=== PATIENT | male | born 1945 | race Caucasian/White ===

== ENCOUNTER 2017-10-26 09:35 | Outpatient (RCR) | payer OTHER, SELFPAY ==
--- NOTE | 2017-10-26 09:30 | PTTR_ITS ---
DATE: October 26, 2017 SUBJECTIVE: Vincent states that he continues to note irritation with prolonged sitting on his right sided SI region. He continues to self manage with self trigger points and massage techniques as well as compliancy with his home stretching program and stabilization. He was away for vacation and did a lot of swimming which seemed to help. He is going to be away for the next week and is going to touch base with his PCP upon his return to check into possible TP injections. OBJECTIVE: Manual therapy: ([id number]).Soft tissue stretching to bilateral hamstring, ITB, piriformis, SKC, hook lying lumbar rotation. PA mobilization to the lumbar spine Gr III. Transverse mobilization followed. STM throughout the entire low back and pelvic brim. TPR to the glut med and max. CFM to the pelvic brim and paraspinals with focus on right side. STM was completed in prone position. Ended with cold pack to the low back and right SI region for 10 minutes post. At this time do agree with Vincent feel that further intervention might be needed for more prolonged symptomatic relief. Continued to get good relief via STM and stretches however not long standing results. Also recommended consult with Timo Castillo DPT for possible dry needling. Will plan to follow up as needed. He will continue with HEP. Direct treatment time: 30 minutes Total treatment time: 40 minutes
== END 2017-11-05 23:59 | disposition home or self-care (01) ==
LOC: PT 09:35
PROVIDERS: PCP Family Medicine; Referring Provider Family Medicine; Visit Provider Family Medicine
DX: M77.02 Medial epicondylitis, left elbow (principal); M54.41 Lumbago with sciatica, right side
CPT/HCPCS: 97140

== ENCOUNTER 2018-02-02 08:27 | Outpatient (CLI) | payer OTHER, SELFPAY ==
[2018-02-02 10:04] LABS: Anion Gap 6.7 mmol/L (3-11); BUN 14 mg/dL (7-18); CO2 32.3 mmol/L (21.0-32.0); CREATININE 0.83 mg/dL (0.70-1.30); Calcium 8.7 mg/dL (8.5-10.1); Chloride 102 mmol/L (98-107); Cholesterol 236 mg/dL (50-200); Glucose 109 mg/dL (70-100); HDL Cholesterol 53 mg/dL (40-60); LDL CHOLESTEROL 169 mg/dL (<100); Potassium 4.1 mmol/L (3.5-5.1); Sodium 141 mmol/L (136-145); Triglyceride 103 mg/dL (30-150)
== END 2018-02-02 08:47 ==
PROVIDERS: PCP Family Medicine; Visit Provider Family Medicine
DX: E78.5 Hyperlipidemia, unspecified (principal)
CPT/HCPCS: 36415; 80048; 80061; 83721

== ENCOUNTER 2018-02-15 01:59 | Outpatient (CLI) | payer OTHER, SELFPAY ==
[2018-02-16 08:52] LABS: PSA, Screening 2.9 ng/ml (0-6.5)
== END 2018-02-15 02:19 ==
PROVIDERS: PCP Family Medicine; Visit Provider Family Medicine
DX: Z12.5 Encounter for screening for malignant neoplasm of prostate (principal); Z80.42 Family history of malignant neoplasm of prostate
CPT/HCPCS: 36415; 84153

== ENCOUNTER 2019-02-13 00:15 | Outpatient (CLI) | payer OTHER, SELFPAY ==
[2019-02-13 09:08] LABS: Anion Gap 8.4 mmol/L (3-11); BUN 14 mg/dL (7-18); CO2 28.6 mmol/L (21.0-32.0); CREATININE 0.84 mg/dL (0.70-1.30); Calcium 8.5 mg/dL (8.5-10.1); Calculated LDL 165 mg/dL; Chloride 104 mmol/L (98-107); Cholesterol 230 mg/dL (<200); Glucose 105 mg/dL (74-106); HDL Cholesterol 50 mg/dL (40-60); Potassium 4.2 mmol/L (3.5-5.1); Sodium 141 mmol/L (136-145); Triglyceride 75 mg/dL (<150)
[2019-02-14 09:59] LABS: PSA, Screening 2.6 ng/mL (0.0-6.5)
== END 2019-02-13 00:35 ==
PROVIDERS: PCP Family Medicine; Visit Provider Family Medicine
DX: E78.5 Hyperlipidemia, unspecified (principal); Z12.5 Encounter for screening for malignant neoplasm of prostate
CPT/HCPCS: 36415; 80048; 80061; 84153

== ENCOUNTER 2020-02-21 02:32 | Outpatient (CLI) | payer OTHER, SELFPAY ==
[2020-02-21 12:23] LABS: HCT 47.8 % (40.0-50.0); HGB 16.2 g/dL (13.5-17.5); MCH 32.2 pg (27.0-33.0); MCHC 33.9 % (32.0-36.0); MPV 10.5 fL (8.0-11.0); Platelet Count 153 10^3/uL (130-400); RBC 5.03 10^6/uL (4.36-5.78); RDW 11.6 % (11.8-14.1); WBC 6.87 10^3/uL (4.4-10.8)
[2020-02-21 12:37] LABS: ALT 30 U/L (16-63); AST 24 U/L (15-37); Albumin 3.9 g/dL (3.4-5.0); Alkaline Phosphatase 66 U/L (46-116); Anion Gap 5.9 mmol/L (3-11); BUN 12 mg/dL (7-18); Bilirubin, Total 0.8 mg/dL (0.2-1.0); CO2 31.1 mmol/L (21.0-32.0); CREATININE 0.86 mg/dL (0.70-1.30); Calcium 8.3 mg/dL (8.5-10.1); Calculated LDL 144 mg/dL (<100); Chloride 104 mmol/L (98-107); Cholesterol 215 mg/dL (<200); Glucose 100 mg/dL (74-106); HDL Cholesterol 54 mg/dL (40-60); Potassium 4.1 mmol/L (3.5-5.1); Sodium 141 mmol/L (136-145); Total Protein 7.3 g/dL (6.4-8.2); Triglyceride 88 mg/dL (<150)
[2020-02-21 22:14] LABS: PSA, Screening 2.3 ng/mL (0.0-6.5)
== END 2020-02-21 02:52 ==
PROVIDERS: PCP Family Medicine; Visit Provider Family Medicine
DX: Z00.00 Encounter for general adult medical examination without abnormal findings (principal); Z13.220 Encounter for screening for lipoid disorders; Z12.5 Encounter for screening for malignant neoplasm of prostate; Z80.42 Family history of malignant neoplasm of prostate
CPT/HCPCS: 36415; 80053; 80061; 84153; 85027

== ENCOUNTER 2021-08-07 02:56 | Outpatient (CLI) | payer OTHER, SELFPAY ==
[2021-08-07 22:06] LABS: PSA, Screening 2.4 ng/mL (<=6.5)
== END 2021-08-07 02:57 | disposition home or self-care (01) ==
PROVIDERS: PCP Family Medicine; Visit Provider Family Medicine
DX: N40.0 Benign prostatic hyperplasia without lower urinary tract symptoms (principal); Z12.5 Encounter for screening for malignant neoplasm of prostate
CPT/HCPCS: 36415; 84153

== ENCOUNTER → 2021-09-17 02:16 | Outpatient (CLI) | payer OTHER, SELFPAY ==
--- NOTE | 2021-09-17 08:00 | DI.MRI_ITS ---
Exam(s) MR ANGIO NECK WO CLINICAL HISTORY: carotid bruit, u/s indeterminate, R09.89. TECHNIQUE: 1.5 bozena unit using [id number] sequence. CONTRAST MATERIAL: None COMPARISON: Recent carotid ultrasound was reviewed FINDINGS: Aortic arch anatomy is conventional. Both common carotid arteries ascend with normal luminal diameters. There is minimal atherosclerotic d isease at the carotid bifurcations and proximal internal carotid arteries. No significant stenosis ev ident at these levels and the internal carotid arteries above this level are nicely patent and straig ht line flow in the neck. Also demonstrated to be patent in the skull base-carotid canals. Posterior circulation: Three vertebral arteries are patent in the foramen transverse area with equal normal luminal diameter s and no evidence of intraluminal filling defects nor dissection. At the skull base both vertebral ar teries contribute to the formation of the basilar artery. IMPRESSION: 1. No significant stenosis in the carotid arteries in the neck. 2. Both vertebral arteries are patent in the neck and of equal luminal diameters. DATA REPOSITORY:
== END ==
PROVIDERS: PCP Family Medicine; Visit Provider Family Medicine
DX: R09.89 Other specified symptoms and signs involving the circulatory and respiratory systems (principal)
CPT/HCPCS: 70547

== ENCOUNTER 2021-12-03 03:14 | Outpatient (CLI) | payer OTHER, SELFPAY ==
[2021-12-03 12:19] LABS: CREATININE 0.8 mg/dL (0.70-1.30); Estimated GFR 92.87 (mL/min/1.73m2)
== END 2021-12-03 03:15 | disposition home or self-care (01) ==
LOC: LOS 03:14
PROVIDERS: PCP Family Medicine; Visit Provider Family Medicine
DX: R09.89 Other specified symptoms and signs involving the circulatory and respiratory systems (principal)
CPT/HCPCS: 36415; 82565

== ENCOUNTER 2022-02-24 02:19 | Outpatient (CLI) | payer OTHER, SELFPAY ==
[2022-02-24 13:24] LABS: ALT 43 U/L (16-63); AST 37 U/L (15-37); Albumin 4.2 g/dL (3.4-5.0); Alkaline Phosphatase 95 U/L (46-116); Anion Gap 4.2 mmol/L (3-11); BUN 12 mg/dL (7-18); Bilirubin, Total 0.9 mg/dL (0.2-1.0); CO2 32.8 mmol/L (21.0-32.0); CREATININE 0.8 mg/dL (0.70-1.30); Calcium 8.6 mg/dL (8.5-10.1); Calculated LDL 72 mg/dL (<100); Chloride 100 mmol/L (98-107); Cholesterol 145 mg/dL (<200); Estimated GFR 92.87 (mL/min/1.73m2); Glucose 106 mg/dL (74-106); HDL Cholesterol 64 mg/dL (40-60); Potassium 3.4 mmol/L (3.5-5.1); Sodium 137 mmol/L (136-145); Total Protein 7.9 g/dL (6.4-8.2); Triglyceride 46 mg/dL (<150)
== END 2022-02-24 02:20 | disposition home or self-care (01) ==
LOC: LBO 02:19
PROVIDERS: PCP Family Medicine; Visit Provider Family Medicine
DX: E78.5 Hyperlipidemia, unspecified (principal); Z00.00 Encounter for general adult medical examination without abnormal findings; Z13.6 Encounter for screening for cardiovascular disorders
CPT/HCPCS: 36415; 80053; 80061

== ENCOUNTER 2022-03-11 04:13 | Outpatient (CLI) | payer MEDICARE, BC, SELFPAY ==
--- NOTE | 2022-03-11 07:45 | DI.RAD_ITS ---
Exam(s) XR KNEE LT 3V AP,LAT,SHAWN EXAM: XR KNEE LT 3V AP,LAT,SHAWN CLINICAL HISTORY: left knee pain, chronic,m25.562. TECHNIQUE: 2D digital imaging was performed. Three views. COMPARISON: No exams were available for comparison FINDINGS: BONES: No acute fracture is present. No bony destructive lesion is seen. JOINTS: The joint spaces are maintained. The knee is normally aligned. No joint effusion is seen. Minimal periarticular spurring. SOFT TISSUE: Vascular calcifications. IMPRESSION: Minimal degenerative changes. DATA REPOSITORY: RADIATION DOSE DELIVERED:
== END 2022-03-11 04:33 ==
PROVIDERS: PCP Family Medicine; Visit Provider Family Medicine
DX: M25.562 Pain in left knee (principal); M76.892 Other specified enthesopathies of left lower limb, excluding foot
CPT/HCPCS: 73562

== ENCOUNTER 2022-04-01 08:58 | Outpatient (REF) | payer MEDICARE, BC, SELFPAY ==
--- NOTE | 2022-04-01 07:50 | SKI_PTH ---
PATIENT: Vincent Owen JR LOC: [facility] U#:[id number] AGE/SX: 76/M ROOM: RE04/01/[address]: Pennie Davalos : 1945 BED: DIS: 04/01/2022 SPEC #: [id number] RECD: 04/01/22 12:30 STATUS: OMID ROGERS #: [id number] MANGO: 04/01/22 07:[address]: Pennie Davalos DEPT: Surgical Specimen RECD BY: Jennifer Walker Tissues: 1 - SKIN BIOPSY(SHAVE/PUNCH) Procedures: GROSS AND MICRO LEVEL 4 Comments: [id number]
== END 2022-04-01 08:59 | disposition home or self-care (01) ==
LOC: LBN 08:58
PROVIDERS: PCP Family Medicine; Visit Provider Family Medicine
DX: L85.8 Other specified epidermal thickening (principal); L08.89 Other specified local infections of the skin and subcutaneous tissue
CPT/HCPCS: 88305

== ENCOUNTER 2023-01-04 08:03 | Outpatient (CLI) | payer MEDICARE, BC, SELFPAY ==
[2023-01-04 12:29] LABS: Abs Immature Grans 0.01 10^3/uL (0.0-0.06); Absolute Basophil Count 0.03 10^3/uL (0.0-0.2); Absolute Eosinophil Count 0.16 10^3/uL (0.0-0.7); Absolute Lymphocyte Count 1.19 10^3/uL (1.2-3.4); Absolute Monocyte Count 0.68 10^3/uL (0.1-0.8); Absolute Neutrophil Count 3.51 10^3/uL (1.2-6.7); Basophils % 0.5; Eosinophils % 2.9; HCT 44.7 % (40.0-50.0); Immature Grans % 0.2; Lymphocytes % 21.3; MCH 31.3 pg (27.0-33.0); MCHC 33.6 % (32.0-36.0); MCV 93 fL (80-95); Monocytes % 12.2; Neutrophils % 62.9; Platelet Count 181 10^3/uL (130-400); RDW 11.7 % (11.8-14.1); RDW-SD 40.1 fL; WBC 5.58 10^3/uL (4.4-10.8)
[2023-01-04 12:44] LABS: ALT 34 U/L (16-63); AST 31 U/L (15-37); Albumin 3.7 g/dL (3.4-5.0); Alkaline Phosphatase 81 U/L (46-116); Anion Gap 7.1 mmol/L (3-11); BUN 15 mg/dL (7-18); Bilirubin, Total 0.7 mg/dL (0.2-1.0); CO2 29.9 mmol/L (21.0-32.0); CREATININE 0.9 mg/dL (0.70-1.30); Calcium 8.8 mg/dL (8.5-10.1); Chloride 104 mmol/L (98-107); Estimated GFR 89.07 (mL/min/1.73m2); Glucose 82 mg/dL (74-106); Lipase 52 U/L (16-77); Potassium 3.7 mmol/L (3.5-5.1); Sodium 141 mmol/L (136-145); Total Protein 7.4 g/dL (6.4-8.2)
== END 2023-01-04 08:04 | disposition home or self-care (01) ==
PROVIDERS: PCP Family Medicine; Referring Provider Nurse Practitioner Family; Visit Provider Nurse Practitioner Family
DX: R10.13 Epigastric pain (principal)
CPT/HCPCS: 36415; 80053; 83690; 85025

== ENCOUNTER → 2023-01-25 03:11 | Outpatient (CLI) | payer MEDICARE, BC, SELFPAY ==
--- NOTE | 2023-01-25 07:30 | DI.US_ITS ---
Exam(s) US ABDOMEN EXAM: US ABDOMEN CLINICAL HISTORY: epigastric discomfort, R10.13 TECHNIQUE: Ultrasound abdomen performed using standard protocol. COMPARISON: US ABDOMEN ULTRASOUND (P) from 12/27/2014 FINDINGS: LIVER: Normal size and echogenicity. No focal liver lesions are seen. GALLBLADDER: Small amount of layering sludge. No evidence of cholelithiasis. No evidence of wall thi ckening. No pericholecystic fluid identified. MURRY'S SIGN: Negative. BILIARY SYSTEM: No intrahepatic or extrahepatic biliary ductal dilation. KIDNEYS: Kidneys are symmetric in size. No evidence of renal calculi. No evidence of hydronephrosis. No renal mass or cyst identified. PANCREAS: Obscured by bowel gas. SPLEEN: Not enlarged. ABDOMINAL AORTA AND IVC: Visualized portions normal caliber. ASCITES: None seen. IMPRESSION: Small amount of sludge in the gallbladder. No abnormal gallbladder distention and wall thickening or stones. DATA REPOSITORY:
== END ==
PROVIDERS: PCP Family Medicine; Visit Provider Nurse Practitioner Family
DX: R10.13 Epigastric pain (principal)
CPT/HCPCS: 76700

== ENCOUNTER 2023-03-18 03:33 | Outpatient (CLI) | payer MEDICARE, BC, SELFPAY ==
[2023-03-18 20:02] LABS: PSA, Screening 2.2 ng/mL (<=6.5)
== END 2023-03-18 03:34 | disposition home or self-care (01) ==
LOC: LOS 03:33
PROVIDERS: PCP Family Medicine; Visit Provider Family Medicine
DX: N40.1 Benign prostatic hyperplasia with lower urinary tract symptoms (principal); R35.1 Nocturia; Z12.5 Encounter for screening for malignant neoplasm of prostate
CPT/HCPCS: 36415; 84153

== ENCOUNTER → 2024-02-21 10:55 | Outpatient (BNVA) | payer MEDICARE, BC, SELFPAY | PROVIDERS: PCP Family Medicine; Referring Provider Family Medicine; Visit Provider Surgery | DX: R19.5 Other fecal abnormalities (principal); K21.9 Gastro-esophageal reflux disease without esophagitis; Z12.11 Encounter for screening for malignant neoplasm of colon | CPT/HCPCS: 99203 ==

== ENCOUNTER 2024-03-16 04:50 | Outpatient (CLI) | payer MEDICARE, BC, SELFPAY ==
[2024-03-16 13:08] LABS: ALT 32 U/L (16-63); AST 28 U/L (15-37); Albumin 4.2 g/dL (3.4-5.0); Alkaline Phosphatase 94 U/L (46-116); Anion Gap 6.4 mmol/L (3-11); BUN 12 mg/dL (7-18); Bilirubin, Total 1.13 mg/dL (0.2-1.0); CO2 30.6 mmol/L (21.0-32.0); Calcium 9.1 mg/dL (8.5-10.1); Calculated LDL 87 mg/dL (<100); Chloride 104 mmol/L (98-107); Cholesterol 166 mg/dL (<200); Glucose 105 mg/dL (74-106); HDL Cholesterol 65 mg/dL (40-60); Magnesium 2.2 mg/dL (1.8-2.4); Potassium 4.1 mmol/L (3.5-5.1); Sodium 141 mmol/L (136-145); Total Protein 7.6 g/dL (6.4-8.2); Triglyceride 70 mg/dL (<150); Vitamin B12 793 pg/mL (193-986)
[2024-03-16 20:26] LABS: PSA, Screening 2.7 ng/mL (<=6.5)
== END 2024-03-16 04:51 | disposition home or self-care (01) ==
LOC: LOS 04:50
PROVIDERS: PCP Family Medicine; Visit Provider Family Medicine
DX: R03.0 Elevated blood-pressure reading, without diagnosis of hypertension; Z12.5 Encounter for screening for malignant neoplasm of prostate; N40.1 Benign prostatic hyperplasia with lower urinary tract symptoms; N13.8 Other obstructive and reflux uropathy; G57.92 Unspecified mononeuropathy of left lower limb; Z13.6 Encounter for screening for cardiovascular disorders
CPT/HCPCS: 36415; 80053; 80061; 84153; 82607; 83735

== ENCOUNTER 2024-04-10 07:04 | Day surgery (SDC) | payer MEDICARE, BC, SELFPAY ==
--- NOTE | 2024-04-09 06:07 | W.PREOPHP ---
Assessment and Plan Assessment and plan (1) Encounter for screening colonoscopy: Status: Acute Assessment and plan: I met with Steven and we reviewed the plan for a screening EGD and colonoscopy today. We discussed their role as part of routine health maintenance. Steven had the chance to ask any new questions. He was able to provide informed consent and we can proceed with EGD and colonoscopy as planned. History of Present Illness History of Present Illness Chief Complaint: GERD and screening colonoscopy Narrative: Pt seen at the request of PCP regarding colon cancer screening. Pt has had colon cancer screening before.?He has a remote Hx of adenomatous polyp. last CE in 2013 was normal. He recently had a Cologuard and was Positive. They denies problems with mild constipaiton. ? They deny any pain or difficulty with bowel movements, or rectal bleeding.? There is no family history of any colon cancer.? Pt has not had any unexplained weight loss.? Their appetite is good.? ?They deny heart, lung, or kidney problems. They are not having heartburn or indigestion. They have not had any prior colo-rectal surgery.? The patient has not had a prior prostate Sx or XRT.? They deny any problems with anesthesia in the past. The patient is a 78-year-old individual who presents for evaluation of a positive Cologuard test. They have a history of prior colonoscopies with a remote history of adenomatous polyps. Their first colonoscopy, conducted in the mid-, revealed a benign polyp. Subsequent colonoscopies in the early 1999s and 2013 showed no abnormalities. They recently had a Cologuard test, which was positive. They report irregular bowel movements, including constipation and hard stools, which they attribute to decreased fluid intake. They have not observed any blood or black coloration in their stools. They do not regularly consume aspirin, ibuprofen, Motrin, or Naprosyn but occasionally use ibuprofen for muscle aches, noting that it can cause constipation if used consistently. They have no history of heart attack, stroke, emphysema, asthma, or diabetes. They are not on any blood pressure medication. They have no known issues with anesthesia. They have not undergone prostate surgery or radiation therapy, and their PSA levels have always been within the normal range, although they have an enlarged prostate. They have a history of nocturia. They have a history of snoring and possible sleep apnea, as reported by their spouse, but have not undergone a sleep study. Over the past few months, they have experienced intermittent dyspepsia, which they manage with omeprazole. They also take famotidine twice daily. They report occasional difficulty swallowing, unrelated to acid reflux, and infrequent burping. They have not experienced any recent episodes of these symptoms. They report no nausea or vomiting. They describe their current symptoms as more indicative of dyspepsia than chest burning. They attempt to avoid caffeine due to its adverse effects on their stomach, a pattern they have observed since their college years. They occasionally consume iced coffee and chocolate but avoid soda, energy drinks, and tea, opting for decaffeinated or herbal teas instead. Since his last encounter, there have been no significant changes with regards to the interval history. PFSH All Active Problems Encounter for screening colonoscopy (Acute) Impacted cerumen, right ear (Acute) Hearing loss (Acute) Esophageal dysphagia (Acute ~09/2023) upcoming EGD Neuropathy of left lower extremity (Acute) BPH w urinary obs/LUTS (Acute) Positive colorectal cancer screening using Cologuard test (Acute) Chronic pain of left ankle (Acute) Elevated BP without diagnosis of hypertension (Acute) Dupuytren's contracture of right hand (Acute) right 5th finger, not surgical candidate - too advanced. Hyperlipidemia (Chronic) Allergic rhinitis (Acute) seasonal, managed with fluticasone, [place] Medical History COVID-19 (~10/28/21) Hx of basal cell carcinoma (~2016) treated with MOHS surgery - right nose, left forehead Polyp of colon hyperplastic in 2013 Family history of prostate cancer brother; age 61 Surgical History S/P cataract extraction (~01/2024) Vasectomy MOHS SURGERY 05/22 Repair of inguinal hernia Colonoscopy - MAC 11/10/13 Family History Mother , age 94 Depression Father , age 90 Hyperlipidemia Pancreatic cancer Sister Essential hypertension Hyperlipidemia Hypertension Brother Basal cell carcinoma (BCC) Brother Basal cell carcinoma (BCC) Prostate cancer Maternal Grandfather , age 83 No problems noted. Paternal Grandfather , age 78 Colon cancer Maternal Grandmother , age 85 Lymphoma Paternal Grandmother , age 99 No problems noted. Daughter No problems noted. Daughter No problems noted. Social History (Updated 03/14/24 @ 10:21 by Juliet Quintero) Smoking/Tobacco Use Status: Former Tobacco Use Second Hand Exposure: Yes Smoking risk assessment performed?: Yes Alcohol Intake: current Alcohol Intake frequency: a few times a week Alcohol type: beer, wine and hard liquor Drug use: Current Sobriety Substance use type: marijuana Adopted: No Caregiver/Support person: No Foster care: No Household members: spouse Housing: house Number of Children: 2 number of grandchildren: 0 Communication Needs: None Education Level: master's degree Do you need help understanding health information?: Rarely 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 Pets and animals: No Sexually active: Yes Do you think of yourself as: straight/heterosexual Current gender identity: male What is your relationship status?: How often do you talk on the phone with friends or family?: three or more times per week How often do you get together with friends or relatives?: twice per week How often do you attend mandaen or episcopalian services?: decline to answer Do you belong to any clubs or organized social groups?: yes Panel score (0-1 are the most socially isolated patients): 3 What type of physical activity do you participate in: walking, aerobic, swimming, weight lifting, running, yoga and additional Duration: 45-60 minutes/day Frequency: 5-6 times per week Sammi/Congregational: Non jehovah's witness Special sammi needs: No Agree to transfusion: Yes Seatbelt use: always Helmet use: No Drive intox or ride w/intox driver supervisor: No Working smoke detector in home: Yes Carbon monox detector in home: Yes Firearms in home: Yes Firearms unloaded and locked: No Do you feel safe at home: Yes Do you feel safe in your relationship?: Yes Victim of physical abuse: No Victim of emotional abuse: No Victim of sexual abuse: No Would you like helpful sources: No Meds Allergies and Home Medications Allergies Allergy/AdvReac Type Severity Reaction Status Date / Time No Known Allergies Allergy Verified 04/10/24 07:28 Home Medications ?Medication ?Instructions ?Recorded ?Confirmed ?Type ascorbic acid (vitamin C) 500 mg 500 mg PO DAILY 08/10/12 04/10/24 History tablet (Vitamin C) echinacea 400 mg capsule 400 mg PO DAILY 08/10/12 04/10/24 History garlic 1 ea PO DAILY 08/10/12 04/10/24 History multivitamin 1 ea PO DAILY 08/10/12 04/10/24 History fluticasone propionate 50 1 spray NS DAILY #1 inh 02/27/20 04/10/24 Rx mcg/actuation nasal spray,suspension ketorolac 0.5 % eye drops (Acular) 1 drp ophthalmic (eye) DAILY 01/04/23 04/10/24 History atorvastatin 40 mg tablet 40 mg PO QHS #90 tabs 03/09/23 04/10/24 Rx fexofenadine 180 mg tablet 180 mg PO DAILY PRN 02/21/24 04/10/24 History magnesium 200 mg tablet 200 mg PO DAILY 02/21/24 04/10/24 History saw palmetto 500 mg capsule 500 mg PO DAILY PRN 02/21/24 04/10/24 History mupirocin 2 % topical ointment 1 applic topical BID PRN 03/10/24 04/10/24 History omeprazole 20 mg capsule,delayed 20 mg PO DAILY PRN indigestion #90 03/10/24 04/10/24 Rx release caps tamsulosin 0.4 mg capsule 0.4 mg PO HS #90 caps 04/09/24 04/10/24 Rx Exam Const General: cooperative, healthy appearing and not in acute distress Neck Neck: normal visual inspection, no lymphadenopathy and supple Resp Effort & Inspection: normal respiratory effort Auscultation: clear to auscultation bilaterally Cardio Jugular venous pressure: no JVD Rate: regular rate Rhythm: regular rhythm Heart Sounds: S1 normal and S2 normal GI Inspection: normal to inspection Palpation: soft, no guarding, no hernias and nontender Percussion: normal to percussion Auscultation: normal bowel sounds Neuro General: patient alert, patient awake and patient oriented x3 Psych Appearance: grossly normal
--- NOTE | 2024-04-09 06:10 | W.PM.DSUDISC ---
Date of service: 04/10/24 Discharge Plan Disposition Patient Disposition: Home Condition: Good Discharge Details Reason For Visit: EGD and colonoscopy Attending Provider: Constantino Edmondson Primary Care Provider: Pennie Davalos Home Meds and New Rx's Prescriptions: Continued atorvastatin 40 mg tablet 40 mg PO QHS Qty: 90 3RF magnesium 200 mg tablet 200 mg PO DAILY fluticasone propionate 50 mcg/actuation spray,suspension 1 spray NS DAILY Qty: 1 11RF ketorolac [Acular] 0.5 % drops 1 drp ophthalmic (eye) DAILY fexofenadine 180 mg tablet 180 mg PO DAILY PRN mupirocin 2 % ointment 1 applic TP BID PRN Rx Instructions: Use cotton swab in both nostrils bid omeprazole 20 mg capsule,delayed release(DR/EC) 20 mg PO DAILY PRN (Reason: indigestion) Qty: 90 0RF multivitamin 1 EACH tablet 1 ea PO DAILY echinacea 400 MG capsule 400 mg PO DAILY ascorbic acid (vitamin C) [Vitamin C] 500 MG tablet 500 mg PO DAILY garlic 1 EACH capsule 1 ea PO DAILY saw palmetto 500 mg capsule 500 mg PO DAILY PRN Discontinued polyethylene glycol 3350 17 gram/dose powder 238 g PO ONCE Qty: 238 0RF Rx Instructions: take per colonoscopy instructions bisacodyl [Dulcolax (bisacodyl)] 5 mg tablet,delayed release (DR/EC) 5 mg PO ONCE Qty: 4 0RF Rx Instructions: take per colonoscopy instructions No Action tamsulosin 0.4 mg capsule 0.4 mg PO HS Qty: 90 3RF Discharge Instructions Additional Instructions: Steven, it was great meeting you today. I hope you are comfortable during the procedure. Everything went very smoothly. With regards to the upper endoscopy, there is quite a bit of inflammation where your esophagus connects onto your stomach. Some features of this appear consistent with Rai's esophagus, which occurs after longstanding gastroesophageal reflux disease. I biopsied this as well as several other areas in your stomach to see if there is anything else that we can do to help with treatment. But my first inclination is just to continue the proton pump inhibitor for now, and wait to see what the pathology results show. Your colonoscopy also went very smoothly. I did find and remove a total of 6 polyps. Certainly, these are what is causing your Cologuard test to be positive. I took these polyps out today. All of these will be sent off for testing, polyps to come in a bunch of different varieties, and we use that information to help determine the timing of future colonoscopies. Those results will all take about a week or 2 to get back, but once the office has them, we will be in touch with any other recommendations. If you need anything in the meantime, please do not hesitate to ask. 1. If tolerated, consume a soft, low fiber diet for 1-2 days. 2. Do not drive, drink alcohol, operate machinery, make critical decisions, or do activities that require coordination or balance for 24 hours. 3. Because air was put into your colon during the procedure, expelling air from your rectum (passing gas or farting) is normal. 4. You may not have a bowel movement for 1-3 days because of the colonoscopy prep. This is normal. 5. You may experience a sore throat for 24 to 48 hours. You may use throat lozenges or gargle with warm salt water to relieve the discomfort. 6. Because air was put into your stomach during the procedure, you may experience some belching. 7. Go directly to the emergency room if you notice any of the following: Develop chills (warm to touch), or if you have a thermometer and your temperature is above 101 Difficulty breathing or difficultly swallowing Persistent vomiting Severe abdominal pain, other than gas cramps Severe chest pain Black, tarry stools Any bleeding ? exceeding one tablespoon 8. Call your physician if the site where your intravenous was started becomes red, swollen, painful, and warm to touch. 9. Your physician has reviewed your pre-procedure medications. Please continue to take those medications as previously ordered. You will be given specific information/education regarding any changes to your medications before leaving. Stand Alone Forms: Anesthesia Discharge Inst., Laure Valentino (DSU) Activity:: Activity as Tolerated Diet:: As Tolerated Discharge Orders Discharge Orders: Discharge Order (Routine); Ordered 04/09/24 Ordered By: Constantino Edmondson DS: Diagnosis Discharge Diagnosis (1) Encounter for screening colonoscopy: Status: Acute Asessment and Plan: Follow-up on biopsies and polypectomy results
--- NOTE | 2024-04-09 06:12 | ENDO_ITS ---
Date of service: 04/10/24 Time of Service: 09:43 Endoscopy Report DATE OF PROCEDURE: 04/10/24 PRE-OP DIAGNOSIS: GEGD and positive cologuard test POST-OP DIAGNOSIS: other (Rai's esophagus, colon rectal polyp) PROCEDURE: EGD with biopsies and colonoscopy with polypectomy SURGEON: Constantino Edmondson ANESTHESIA TYPE: General:No Airway ESTIMATED BLOOD LOSS: 10 PATHOLOGY: other (Random biopsies of gastric antrum and body to rule out Helicobacter pylori. Four-quadrant biopsies of Rai's esophagus; larger re ctal polyp, smaller rectal polyps x 2, cecal polyp, 0.25 cm polyp at 100 cm, 0.5 cm polyp at 30 cm) COMPLICATIONS: None DISPOSITION: same day INDICATIONS: Steven is a 78 year old man with longstanding GERD despite PPI therapy. He had a positive cologuard test. He needs screening EGD and colonoscopy PREP: Miralax/Dulcolax PROCEDURE START TIME: 08:29 PROCEDURE END TIME: 09:27 COLONOSCOPY RETRACTION TIME: 20 FINDINGS: Short segment Rai's esophagus extending from about 36 to 38 cm beyond the incisors; larger rectal polyp, smaller rectal polyps x 2, cecal polyp, 0.25 cm polyp at 100 cm, 0.5 cm polyp at 30 cm PROCEDURE DESCRIPTION: After the initiation of anesthesia, and with the assistance of a bite block, I advanced a standard gastroscope through the mouth past the hypopharynx and into the esophagus.? Under the direct vision of the scope, I advanced down the esophagus towards the stomach.? The upper and midesophagus were normal appearing. There was inflamed friable tissue at the GE junction. Narrowband imaging was used to assist with the analysis here. There appeared to be a tongue of Rai's esophagus extending from about 36 cm beyond the incisors to about 38 cm. I advanced down into the stomach proper and perform retroflexion. There is a grade 2 hiatal hernia. The remainder of the stomach all appeared normal down through the pylorus. I was able to advance across the pylorus into the duodenum which also appeared normal. I advanced down to the third portion of the duodenum, and I did not appreciate any abnormalities. I then brought the camera back up into the stomach proper. I performed nondirected biopsies of the gastric antrum and body to rule out Helicobacter pylori. Next, I brought the camera back up to the GE junction where the previously mentioned area of what appeared to be Rai's esophagus was noted. I perform four-quadrant biopsies here using cold forceps, which was also used in the stomach. There was no significant bleeding from any of the biopsy sites. I then emptied the stomach and brought the camera out along the length of the esophagus 1 last time. No other abnormalities were appreciated. We then rolled Steven into the left lateral decubitus position, taking great care to make sure that he was padded and supported appropriately. I began by perform ing an external anorectal exam.? Perineum and skin were normal, as was the anal verge.? There was no evidence of external hemorrhoids.? Next, I performed a digital rectal exam.? I did not appreciate any abnormal findings.? Next, I advanced a colonoscope into the rectal vault.? I performed retroflexion.? This appeared normal.? In the lower portion of the rectal vault were 3 polyps. 1 of these was larger and a bit pedunculated. The other 2 were flat and slightly ulcerated appearing. The remainder of the rectal mucosa appeared normal. Cold forceps biopsies were used to remove these areas. These were sent as a single larger polyp, and 2 smaller polyps which were sent as a single specimen. Cold forceps were used for all of this. There was minimal bleeding. Using insufflation, I then advanced the colonoscope beyond the rectal folds and into the sigmoid colon before advancing towards the cecum.? The quality of the prep was excellent.? The scope was noted to be in the cecum by identification of the ileocecal valve and appendiceal orifice.? I then began withdrawing the colonoscope using repeated irrigation as necessary for full evaluation of the colonic mucosa. There was a 0.25 cm flat polyp in the cecum that was removed with cold forceps. Similarly, another flat polyp was detected around 100 cm from the anus. This was also removed with cold forceps without issues. Another polyp was found about 30 cm beyond the anal verge. This was about 0.5 cm in size, and pedunculated. This was removed with cold snare polypectomy. There was minimal bleeding from the site as well. Once the scope was withdrawn to the level of the rectum, great care was taken to examine portions of the rectal folds.? No other abnormalities were appreciated. Finally, the scope was withdrawn and the patient was brought to the same-day surgery recovery unit as the anesthetic wore off. ?The findings and instructions were shared with the patient prior to discharge. The [place] bowel prep score from right to left was 3, 3, 3
[2024-04-10 07:07] VITALS: BP 142/70; PULSE 61; RESP 18; TEMP 36.4; O2SAT 98
[2024-04-10] MEDS: Lactated Ringers 1,000 ML 80 ML IV (07:37)
--- NOTE | 2024-04-10 08:01 | W.ANESPRE ---
General Info Date of Service Date Performed: 04/10/24 Height: 5 ft 11 in Weight: 89.915 kg Body Mass Index (BMI): 27.6 Surgical Procedure: Operation Date: 04/10/24 08:05 Proposed Procedure Side Surgeon p Colonoscopy/Gastroscopy Constantino Edmondson MD Meds Allergies and Home Medications Allergies Allergy/AdvReac Type Severity Reaction Status Date / Time No Known Allergies Allergy Verified 04/10/24 07:28 Home Medication ?Medication ?Instructions ?Recorded ascorbic acid (vitamin C) 500 mg 500 mg PO DAILY 08/10/12 tablet (Vitamin C) echinacea 400 mg capsule 400 mg PO DAILY 08/10/12 garlic 1 ea PO DAILY 08/10/12 multivitamin 1 ea PO DAILY 08/10/12 fluticasone propionate 50 1 spray NS DAILY #1 inh 02/27/20 mcg/actuation nasal spray,suspension ketorolac 0.5 % eye drops (Acular) 1 drp ophthalmic (eye) DAILY 01/04/23 atorvastatin 40 mg tablet 40 mg PO QHS #90 tabs 03/09/23 fexofenadine 180 mg tablet 180 mg PO DAILY PRN 02/21/24 magnesium 200 mg tablet 200 mg PO DAILY 02/21/24 saw palmetto 500 mg capsule 500 mg PO DAILY PRN 02/21/24 mupirocin 2 % topical ointment 1 applic topical BID PRN 03/10/24 omeprazole 20 mg capsule,delayed 20 mg PO DAILY PRN indigestion #90 03/10/24 release caps tamsulosin 0.4 mg capsule 0.4 mg PO HS #90 caps 04/09/24 Current Visit Medications: Current Medications Generic Name Dose Route Start Last Admin Trade Name Freq PRN Reason Stop Dose Admin Ringer's Solution 1,000 mls @ 80 mls/hr 04/10/24 06:00 04/10/24 07:37 IV 04/10/24 23:59 80 mls/hr INFUSION HAYLEY Administration IV Miscellaneous Supplies 1 each 04/10/24 06:00 Iv Access IV 04/10/24 23:59 DIRECTED [facility] Ondansetron HCl 4 mg 04/09/24 06:11 Ondansetron 4 Mg/2 Ml Vial IVP 05/09/24 06:10 Q4H PRN PRN Nausea / Vomiting Sodium Chloride 0 ml 04/10/24 06:00 Normal Saline Flush 10 Ml Syr IV 04/10/24 23:59 PRN PRN Sodium Chloride 0 ml 04/10/24 06:00 Normal Saline 10 Ml Vial IJ 04/10/24 23:59 DIRECTED PRN Sterile Water 0 ml 04/10/24 06:00 Water,Injection,Sterile 10 Ml Vial IJ 04/10/24 23:59 DIRECTED PRN PFSH Active Problems Active Problems: Problem Status Onset Code Encounter for screening colonoscopy Acute Z12.11 Impacted cerumen, right ear Acute H61.21 Hearing loss Acute H91.90 Esophageal dysphagia Acute ~09/2023 R13.19 Neuropathy of left lower extremity Acute G57.92 BPH w urinary obs/LUTS Acute N40.1, N13.8 Positive colorectal cancer screening using Cologuard test Acute R19.5 Chronic pain of left ankle Acute M25.572, G89.29 Elevated BP without diagnosis of hypertension Acute R03.0 Dupuytren's contracture of right hand Acute M72.0 Hyperlipidemia Chronic E78.5 Allergic rhinitis Acute J30.9 Medical History Medical History COVID-19 (~10/28/21) Hx of basal cell carcinoma (~2016) treated with MOHS surgery - right nose, left forehead Polyp of colon hyperplastic in 2013 Family history of prostate cancer brother; age 61 Surgical History Surgical History S/P cataract extraction (~01/2024) Vasectomy MOHS SURGERY 05/22 Repair of inguinal hernia Colonoscopy - MAC 11/10/13 Tobacco Smoking/Tobacco Use Status: Former Tobacco Use Passive smoking exposure: Yes Second hand exposure: Yes Alcohol Alcohol Intake: current Alcohol intake frequency: a few times a week Alcohol type: beer, wine and hard liquor Substance Use Substance use: Current Sobriety Substance use type: marijuana Vital Signs and Lab Results Vital Signs Most Recent Vital Signs in EMR: Most Recent Vital Signs Temp Pulse Resp BP Pulse Ox 36.4 C L 61 18 142/70 H 98 04/10/24 07:07 04/10/24 07:07 04/10/24 07:07 04/10/24 07:07 04/10/24 07:07 Lab Results Blood Type / Crossmatch: No Data to Display Complete Blood Count: No Data to Display Complete Metabolic Panel: Sodium 141 mmol/L (136-145) 03/16/24 08:55 Potassium 4.1 mmol/L (3.5-5.1) 03/16/24 08:55 Chloride 104 mmol/L (98-107) 03/16/24 08:55 Carbon Dioxide 30.6 mmol/L (21.0-32.0) 03/16/24 08:55 BUN 12 mg/dL (7-18) 03/16/24 08:55 Creatinine 1.0 mg/dL (0.70-1.30) 03/16/24 08:55 Est GFR (CKD-EPI 2020) 78.00 (mL/min/1.73m2) 03/16/24 08:55 Magnesium 2.2 mg/dL (1.8-2.4) 03/16/24 08:55 Calcium 9.1 mg/dL (8.5-10.1) 03/16/24 08:55 Albumin 4.2 g/dL (3.4-5.0) 03/16/24 08:55 Glucose 105 mg/dL (74-106) 03/16/24 08:55 Liver Function Panel: Alanine Aminotransferase (ALT/SGPT) 32 U/L (16-63) 03/16/24 08:55 Aspartate Amino Transf (AST/SGOT) 28 U/L (15-37) 03/16/24 08:55 Coagulation Panel: No Data to Display Cardiac Panel: No Data to Display Arterial Blood Gas: No Data to Display Venous Blood Gas: No Data to Display Pancreas Panel: No Data to Display Thyroid Panel: No Data to Display Infectious Disease: No Data to Display Blood Cultures: No Data to Display Toxicology Panel: No Data to Display Imaging and Studies Imaging and Studies Study information below may be from another EMR and interpreted by another provider. Please see original notes in EMR for more complete details. Carotid Artery Summary:: 08/14/21: IMPRESSION: Visually there is only mild plaque seen bilaterally. However, there are somewhat elevated velocity recordings on the right side indicating stenosis 50-69 percent in the proximal right ICA and less than 50 percent on the left side. There appears to be an element of discordance between the visual findings and recorded velocities. If clinically indicated further study with magnetic resonance angiography can be performed. Criteria for Carotid Stenosis: Normal: ICA PSV <125 cm/s no plaque or intimal thickening is visible. <50% stenosis: ICA PSV <125 cm/s and plaque or intimal thickening is visible. 50-69% stenosis: ICA PSV is 125-250 cm/s and plaque is visible. >70% stenosis to near occlusion: ICA PSV >250 cm/s with visible plaque and luminal narrowing. Anesthesia Assessment and Plan Anesthesia History Personal History: No History of Anesthesia Complications Family History: No Family History of Anesthesia Complications Exercise Tolerance Exercise Tolerance: Metabolic Equivalents>4 Cardiac & Pulmonary Exam Cardiac Exam: Normal S1/S2 Heart Sounds Pulmonary Exam: Clear Bilateral Breath Sounds Implantable Cardiac Device Does patient have a Pacemaker or an ICD?: No Airway Exam Known Difficult Airway: No Mallampati Class: 2 Mouth Opening: Normal (> 3cm) Thyromental Distance: Greater than 3 cm Neck Range of Motion: Full ROM Neck Circumference: Normal Teeth Condition: Normal Dentition Airway Comments: Dental Implants ASA Classification ASA Score: ASA 2 Emergency Case?: No NPO Status NPO Status: NPO Clears >2 hours, Solids >8 hours Anesthesia Plan Resuscitation Status: Full Code Anesthesia Technique: General Anesthesia Airway Planned: Natural Airway Monitors Used: Standard Monitors
[2024-04-10 08:04] VITALS: BMI 27.6
--- NOTE | 2024-04-10 08:31 | BOWEL_PTH ---
PATIENT: Vincent Owen JR LOC: [facility] U#:[id number] AGE/SX: 78/M ROOM: RE04/10/[address]: Constantino Edmondson MD : 1945 BED: DIS: 04/10/2024 SPEC #: [id number] RECD: 04/10/24 12:55 STATUS: OMID RE #: [id number] MANGO: 04/10/24 08:[address]: Constantino Edmondson DEPT: Surgical Specimen RECD BY: Jennifer Walker ENTERED: 04/10/24 12:57 SP TYPE: Bowel OTHR DR: Pennie Davalos Tissues: 1 - STOMACH BIOPSY 2 - STOMACH BIOPSY 3 - ESOPHAGUS BIOPSY 4 - BIOPSY BOWEL 5 - BIOPSY BOWEL 6 - BIOPSY BOWEL 7 - BIOPSY BOWEL 8 - BIOPSY BOWEL Procedures: GROSS AND MICRO LEVEL 4 Comments: [id number]
[2024-04-10 09:29] VITALS: BP 105/63; PULSE 65; RESP 16; TEMP 36; O2SAT 97
--- NOTE | 2024-04-10 09:47 | W.ANESPOSTOP ---
Postoperative Evaluation Date, Time and Location Date Performed: 04/10/24 Time Performed: 09:47 Patient Location: Day Surgery Unit Vital Signs Most Recent Imported Vital Signs: Most Recent Vital Signs Temp Pulse Resp BP Pulse Ox 36.0 C L 65 16 105/63 97 04/10/24 09:29 04/10/24 09:29 04/10/24 09:29 04/10/24 09:29 04/10/24 09:29 Pain Score Most Recent Pain Score: Most Recent Pain Score Pain Level 0 04/10/24 09:29 Assessment Mental Status: Awake (Alert & Oriented to Patient Baseline) Airway and Respiratory Function: Patent airway with normal (patient baseline) respiratory exam Cardiovascular Function: Hemodynamically Stable Hydration Status: Adequately Hydrated Nausea & Vomiting: No Nausea or Vomiting Pain: Pt. Denies Any Pain Peripheral Nerve Block: Patient did not receive a nerve block
[2024-04-10 10:04] VITALS: BP 136/65; PULSE 55; RESP 16; TEMP 36.5; O2SAT 99
== END 2024-04-10 10:19 | disposition home or self-care (01) ==
PROVIDERS: PCP Family Medicine; Visit Provider Surgery
PROC: (CPT 43239; principal; 2024-04-10 08:00)
DX: Z12.11 Encounter for screening for malignant neoplasm of colon (principal); R19.5 Other fecal abnormalities; K30 Functional dyspepsia; K22.89 Other specified disease of esophagus; D12.8 Benign neoplasm of rectum; D12.3 Benign neoplasm of transverse colon; D12.5 Benign neoplasm of sigmoid colon
CPT/HCPCS: 43239; 45385; 45380; 88305; J2003; J2704

== ENCOUNTER → 2024-04-13 10:23 | Outpatient (BNVA) | payer MEDICARE, BC, SELFPAY | PROVIDERS: PCP Family Medicine; Referring Provider Family Medicine | DX: M72.0 Palmar fascial fibromatosis [Dupuytren] (principal) | CPT/HCPCS: 99213 ==

== ENCOUNTER 2024-07-14 00:28 | Outpatient (CLI) | payer MEDICARE, BC, SELFPAY ==
--- NOTE | 2024-07-14 08:28 | DI.RAD_ITS ---
Exam(s) XR ANKLE LT COMPLETE EXAM: XR ANKLE LT COMPLETE CLINICAL HISTORY: left ankle pain,m25.571. TECHNIQUE: 2D digital imaging was performed. COMPARISON: No exams were available for comparison FINDINGS: 3 views No evidence of acute fracture or widening the ankle mortise. Talar dome unremarkable. There is a 6 x 5 mm calcific density subjacent to the lateral malleolus which has appearance of an ac cessory ossicle. This does not have the appearance of an acute avulsion fracture. There is no promi nent overlying soft tissue swelling. Medial and posterior malleoli appear unremarkable. Bone densit y normal. No osseous lesions nor obvious degenerative changes in the tibiotalar and subtalar joints. Mild vascular calcifications noted. IMPRESSION: As above but no fractures evident DATA REPOSITORY: RADIATION DOSE DELIVERED:
--- NOTE | 2024-07-14 08:28 | DI.RAD_ITS ---
Exam(s) XR FOOT RT COMPLETE EXAM: XR FOOT RT COMPLETE CLINICAL HISTORY: right foot pain,metatarsalgia rt foot, m77.41. TECHNIQUE: 2D digital imaging was performed. COMPARISON: No exams were available for comparison FINDINGS: 3 views No evidence of fracture nor diastasis of the Lisfranc joint. Great toe metatarsophalangeal joint ashley ears unremarkable. No pes planus. Incidentally noted is prominence of the anterior process of the calcaneus. No obvious osseous tarsal coalition. IMPRESSION: As above. DATA REPOSITORY: RADIATION DOSE DELIVERED:
== END 2024-07-14 00:48 ==
LOC: DI 00:28
PROVIDERS: PCP Family Medicine; Visit Provider Family Medicine
DX: M25.572 Pain in left ankle and joints of left foot (principal); G89.29 Other chronic pain; M77.41 Metatarsalgia, right foot
CPT/HCPCS: 73610; 73630

== ENCOUNTER 2024-10-18 01:32 | Outpatient (CLI) | payer MEDICARE, BC, SELFPAY ==
--- NOTE | 2024-10-18 07:00 | DI.RAD_ITS ---
Exam(s) XR HIP LT COMPLETE AP PELVIS EXAM: XR HIP LT COMPLETE AP PELVIS CLINICAL HISTORY: left hip pain,m25.552. TECHNIQUE: 2D digital imaging was performed of the left hip. Two views were obtained. AP pelvis and lateral left hip views were obtained. COMPARISON: No exams were available for comparison FINDINGS: BONES: No acute fracture is present. No bony destructive lesion is seen. JOINTS: No dislocation present. There is mild narrowing of the superior joint space of the left hip. The sacroiliac joints and symphysis pubis are unremarkable. SOFT TISSUE: Normal. There are surgical clips seen in the right pelvis. IMPRESSION: Mild degenerative changes of the left hip. DATA REPOSITORY: RADIATION DOSE DELIVERED:
== END 2024-10-18 01:52 ==
LOC: DI 01:32
PROVIDERS: PCP Family Medicine; Visit Provider Family Medicine
DX: M16.12 Unilateral primary osteoarthritis, left hip (principal)
CPT/HCPCS: 73502

== ENCOUNTER 2024-10-18 13:04 | Outpatient (CLI) | payer MEDICARE, BC, SELFPAY ==
[2024-10-18 11:22] LABS: TSH (W/Ref FT4) 1.46 uIU/mL (0.36-3.74)
== END 2024-10-18 13:05 | disposition home or self-care (01) ==
LOC: LBO 13:04
PROVIDERS: PCP Family Medicine; Visit Provider Family Medicine
DX: E03.9 Hypothyroidism, unspecified (principal); G57.92 Unspecified mononeuropathy of left lower limb
CPT/HCPCS: 36415; 73502; 84443

== ENCOUNTER → 2024-10-30 13:32 | Outpatient (BNVA) | payer MEDICARE, BC, SELFPAY | PROVIDERS: PCP Family Medicine; Referring Provider Family Medicine; Visit Provider Podiatrist | DX: L60.0 Ingrowing nail (principal); M79.671 Pain in right foot; M79.672 Pain in left foot | CPT/HCPCS: 99203 ==

== ENCOUNTER → 2024-12-26 13:45 | Outpatient (BNVA) | payer MEDICARE, BC, SELFPAY | PROVIDERS: PCP Family Medicine; Referring Provider Family Medicine; Visit Provider Psychiatry & Neurology Neurology | DX: G62.9 Polyneuropathy, unspecified (principal); M54.16 Radiculopathy, lumbar region | CPT/HCPCS: 99215 ==

== ENCOUNTER 2025-01-05 13:50 | Outpatient (CLI) | payer MEDICARE, BC, SELFPAY ==
[2025-01-05 16:12] LABS: Hemoglobin A1C 5.6 % (<5.7)
[2025-01-08 13:03] LABS: Albumin 57.5 % (55.8-66.1); Albumin g/dL 4.2 g/dL (3.6-5.2); Alpha 1 g/dL 0.30 g/dL (0.15-0.40); Alpha 2 g/dL 0.70 g/dL (0.50-1.00); Beta g/dL 0.80 g/dL (0.60-1.20); Gamma g/dL 1.30 g/dL (0.60-1.60); Total Protein 7.3 g/dL (6.3-8.2)
[2025-01-08 14:41] LABS: Albumin, Urine % 15.7 %; Albumin, Urine mg/dL <1 mg/dL; Globulins, Urine % 84.3 %; Globulins, Urine mg/dL <4 mg/dL
== END 2025-01-05 13:51 | disposition home or self-care (01) ==
LOC: LOS 13:51
PROVIDERS: PCP Family Medicine; Visit Provider Family Medicine
DX: G62.9 Polyneuropathy, unspecified (principal); R73.01 Impaired fasting glucose
CPT/HCPCS: 36415; 84156; 84166; 86335; 83036; 84165